=== PATIENT | female | born 1975 | race Asian ===

== ENCOUNTER 2016-05-19 06:09 | Observation (INO) | payer OTHER ==
[~2016-05-19] VITALS: Ht 157.5 cm; Wt 48.4 kg
--- NOTE | 2016-05-19 07:21 | DIAGNOSTIC IMAGING REPORT ---
PROCEDURE: XR CHEST 1 VIEW INDICATION: CHEST PAIN TECHNIQUE: Single view chest. 06:40 hours COMPARISON: None FINDINGS: Normal cardiomediastinal contour. Mildly prominent central pulmonary arteries. Hazy opacity in the left lower lung field along the diaphragm with blunting of the left costophrenic angle. The right lung is clear. No pneumothorax. Osseous structures are intact. IMPRESSION: 1. Hazy left lung base opacity in the left. Pneumonia and effusion may be present. Other consolidations such as atelectasis, infarct, or isolated effusion could also be present in the correct clinical setting. 2. Discussed with Dr. Nugent.
--- NOTE | 2016-05-19 08:24 | DIAGNOSTIC IMAGING REPORT ---
PROCEDURE: CTA THORAX WITH CONTRAST INDICATION: Left anterior chest pain, initial encounter TECHNIQUE: 80 ml of Isovue 370 was injected intravenously and axial images were obtained of the entire thorax with 3D sagittal and coronal MIP reconstructions. COMPARISON: Chest x-ray 05/19/2016 FINDINGS: There are pulmonary emboli to the branches of both lower lobes. There is a small peripheral left lower lobe infiltrate and small left pleural effusion. There is no adenopathy. Normal thoracic aorta without dissection or aneurysm. Heart size is normal. Visualized upper abdomen is unremarkable. No suspicious osseous lesions. IMPRESSION: 1. Pulmonary emboli to both lower lobes with small left lower lobe infiltrate and small left pleural effusion 2. Results discussed with Dr. Nugent
--- NOTE | 2016-05-19 09:16 | ED CLINICAL REPORT ---
Clinical Report - Physicians/Mid Levels [facility]ly [facility] [address] [place] [address] 05/19/2016 6:11 Patient: MICHAEL ROBLERO Time Seen: 06:19. Arrived- By private vehicle. Historian- patient. HISTORY OF PRESENT ILLNESS Chief Complaint: CHEST PAIN. At its maximum, severity described as 5 / 10. When seen in the E.D., severity described as 3 / 10. Modifying factors- worsened by deep breaths. It is described as dull, sharp and "pain" and it is described as located in the left chest area and radiating to the neck and upper back. This started about 3 days ago and is still present. It was gradual in onset and has been constant and waxing/waning. Onset during light activity. No nausea, vomiting or diaphoresis. She has had moderate difficulty breathing on exertion. REVIEW OF SYSTEMS No chills, fever, sweats, calf pain or cough. No pedal edema, palpitations, abdominal pain, black stools or bloody stools. No constipation, diarrhea, nausea or vomiting. All systems otherwise negative, except as recorded above. PAST HISTORY PCP - [facility]. Problems: no known problems. Additional Surgeries: no known surgeries. Medications: Control Pills. Allergies: No Known Drug Allergy. SOCIAL HISTORY Never smoker. No alcohol use or drug use. FAMILY HISTORY Denies family medical history. ADDITIONAL NOTES The nursing notes have been reviewed. PHYSICAL EXAM Vital Signs: 05/19/2016 06:13 BP: 120/82. HR: 81. RR: 15. O2 saturation: 100%. Pain level now: 5/10. Have been reviewed. Appearance: Alert. Eyes: Pupils equal, round and reactive to light. ENT: Pharynx normal. Neck: Normal inspection. Neck supple. CVS: Normal heart rate and rhythm. Heart sounds normal. Respiratory: (left basilar atelectatic crackles). Abdomen: Soft and nontender. Bowel sounds normal. No organomegaly. No mass. Back: Normal external inspection. Skin: Skin warm and dry. Normal skin color. Normal skin turgor. Extremities: Extremities exhibit normal ROM. No calf tenderness. No lower extremity edema. LABS, X-RAYS, AND EKG EKG: Normal EKG. Prior EKG unavailable. The study has been independently viewed by me. Chest X-ray: (MPRESSION: 1. Hazy left lung base opacity in the left. Pneumonia and effusion may be present. Other consolidations such as atelectasis, infarct, or isolated effusion could also be present in the correct clinical setting.). The X-rays were interpreted contemporaneously by me and discussed with the radiologist. Chest CT: (IMPRESSION: 1. Pulmonary emboli to both lower lobes with small left lower lobe infiltrate and small left pleural effusion). The study was interpreted contemporaneously by me and discussed with the radiologist. Laboratory Tests: CBC w Diff: (BANDAR: 05/19/2016 06:25) ( Mscvd 05/19/2016 07:40) Final results Test Result Flag Units (Reference) WHITE BLOOD COUNT 6.7 K/uL (4.5-11.5) RED BLOOD COUNT 5.70 H M/uL (4.00-5.20) HEMOGLOBIN 11.6 L gm/dL (12.0-16.0) HEMATOCRIT 37.1 % (36.0-46.0) MEAN CELL VOLUME 65 L fL (80-100) MEAN CORPUSCULAR HGB 20 L pg (26-34) MEAN CORPUSCULAR HGB CONC 31 g/dL (31-37) RED CELL DISTRIBUTION WIDTH 14.2 % (11.6-14.8) PLATELET COUNT 213 K/uL (150-400) NEUTROPHIL % 61.1 % (50-75) LYMPH % 30.4 % (25-40) MONO % 5.7 % (3-14) EOSINOPHIL % 2.4 % (0-4) BASOPHIL % 0.4 % (0-2) RBC MORPHOLOGY 2+ OVALOCYTES~~1+ ANISOCYTOSIS~~2+ MICROCYTOSIS~~2+ HYPOCHROMIA~~GIANT PLATELETS SEEN PT with INR: (BANDAR: 05/19/2016 06:25) ( MsgRcvd 05/19/2016 07:40) Final results Test Result Flag Units (Reference) INR 1.0 (0.8-1.2) Low Intensity Therapy: INR 1.5-2.0 PT range 18.5-23.1Mod.Intensity Therapy: INR 2.0-3.0 PT range 23.1-31.5High Intensity Therapy: INR 2.5-3.5 PT range 27.4-35.5High Intensity Therapy 2: INR 3.0-4.0 PT range 31.5-39.3 APTT 28 SECONDS (24-34) [id number]: (BANDAR: 05/19/2016 06:25) ( MsgRcvd 05/19/2016 06:59) Final results Test Result Flag Units (Reference) D-DIMER QUANTITATIVE 1.72 H ug/mLFEU (0.27-0.52) The primary value of this quantitative assay relates toits negative predictive value (i.e. exclusion) of pulmonaryembolism/deep vein thrombosis/DIC.Elevated levels of d-dimer may also occur with:, age, cancer, inflammation, liver disease,post-op, infection, hematoma, coronary disease, peripheralarteriopathy, bleeding disorders and thrombolytic treatment.Results should be correlated with other clinical andradiological data.Testing Methodology: Latex Immunoassay CMP: (BANDAR: 05/19/2016 06:25) ( MsgRcvd 05/19/2016 07:32) Final results Test Result Flag Units (Reference) GLUCOSE 94 mg/dL (70-110) BUN 10 mg/dL (7-18) CREATININE 1.0 mg/dL (0.6-1.3) Estimated GFR >60 mL/min Estimated GFR- >60 mL/min Note: Persistent reduction over 3 months in eGFR<60 mL/min/1.73 m2 defines CKD. Patients with eGFR values>=60 mL/min/1.73 m2 may also have CKD if evidence ofpersistent proteinuria. Additional information may be foundat [email or web address].org. SODIUM 139 mmol/L (136-145) POTASSIUM 3.4 L mmol/L (3.5-5.1) CHLORIDE 103 mmol/L (98-107) CARBON DIOXIDE 26 mmol/L (21-32) CALCIUM 8.7 mg/dL (8.5-10.1) TOTAL PROTEIN 7.7 g/dL (6.4-8.2) ALBUMIN 3.1 L g/dL (3.3-5.0) BILIRUBIN, TOTAL 0.4 mg/dL (0.0-1.0) ALKALINE PHOSPHATASE 70 U/L (46-116) AST (SGOT) 18 U/L (15-37) ALT (SGPT) 25 U/L (12-78) LIPASE 179 U/L (73-393) AMYLASE 84 U/L (25-115) TROPONIN I <0.05 L ng/mL (0.00-1.5) TROPONIN REFERENCE RANGE:<0.1 NEGATIVE0.1-1.5 INDETERMINANT>1.5 POSITIVE . PROGRESS AND PROCEDURES Course of Care: I had an extended discussion with the patient and her spouse about her contraception. I suggested that she stop the use of the NuvaRing and consider a different form of contraception. We discussed the possible use of a ParaGard IUD or progestin only hormonal therapy. She will stop the use of the NuvaRing and will consider her other options. Patient is stable. Discussed case with hospitalist, (Bindu). Reviewed test results and need for additional work-up. Agreed upon treatment plan, need for patient follow-up and decision to place in observation. Health care provider will see patient in hospital. Patient/family counseled. Old medical records ordered. Old records unavailable. Disposition orders written (in [facility]). Disposition: Admitted. Observation. CLINICAL IMPRESSION Acute pulmonary embolism. (Electronically signed by Garrett Nugent MD 05/20/2016 7:28)
[2016-05-19 10:30] VITALS: BP 116/72
--- NOTE | 2016-05-19 10:30 | NUR ---
PT ADMITTED TO ROOM 210A VIA THE ED. SHE IS ALERT, ORIENTED, INDEPENDANT AND APPEARS CALM. HER IS WITH HER AND DR BOWLIGN WILL BE IN TO SEE HER. CURRENTLY SHE IS RESTING, CALL LIGHT WITHIN REACH. WILL CONTINUE TO MONITOR.
--- NOTE | 2016-05-19 13:16 | ED ORDER SUMMARY ---
..... Patient: MICHAEL ROBLERO OrderSheet [facility] VisitID: [id number] [address] [place] [address] 41y, F Registration Date/Time: 05/19/2016 ORDER SHEET Weight: 52.1 kg (stated) Allergies: No Known Drug Allergy GENERAL ORDERS: CBC w Diff Urgent (06:25 05/19/2016 Sam Addison verbal order read back to Blank MENDEZ) (6:37 CHagish ER Mop Worker) CMP Urgent (06:05/19/2016 Sam Addison verbal order read back to Blank MENDEZ) (6:37 CHagish ER Mop Worker) Troponin-I Urgent (06:05/19/2016 Sam Addison verbal order read back to Blank MENDEZ) (6:37 CHagish ER Mop Worker) D-Dimer Urgent (06:05/19/2016 Sam Addison verbal order read back to Blank MENDEZ) (6:37 CHagish ER Mop Worker) Amylase Urgent (06:05/19/2016 Sam Addison verbal order read back to Blank MENDEZ) (6:37 CHagish ER Mop Worker) Lipase Urgent (06:05/19/2016 Sam Addison verbal order read back to Blank MENDEZ) (6:37 CHagish ER Mop Worker) Chest 1V Urgent (06:05/19/2016 Sam Addison verbal order read back to Blank MENDEZ) (6:36 CHagish ER Mop Worker) Substation Operator Helper (Continuous) (06:05/19/2016 Sam Addison verbal order read back to Blank MENDEZ) (6:36 CHagerty ER Mop Worker) EKG - ER Stat (06:05/19/2016 Sam Addison verbal order read back to Blank MENDEZ) (6[facility] CTA Thorax w Cont (No) (N/A) Urgent (07:26 05/19/2016 Blank MENDEZ) (7:26 Blank MENDEZ) (Cancelled: Other7:27 Blank MENDEZ) PT with INR Urgent (07:26 05/19/2016 Blank MENDEZ) (Ack 8:06 LNations ER Tech1) (9:27 LWhalen R.N.) PTT Urgent (07:05/19/2016 Blank MENDEZ) (Ack 8:07 LNations ER Tech1) (9:27 LWhalen R.N.) CTA Thorax w Cont (No) (N/A) Urgent (07:05/19/2016 Blank MENDEZ) (7:52 LWhalen R.N.) POC - Urine hCG (07:05/19/2016 Blank MENDEZ) (7:48 LWhalen R.N.) - (Protein C deficiency, Protein S deficiency, Antithrombin III deficiency, Prothrombin Gene mutation studies please) (08:47 05/19/2016 Blank MENDEZ) (Ack 9:02 LNations ER Tech1) MEDICATION ORDERS: Lovenox Subcut 1 mg/kg (HIGH ALERT MEDICATION, NOW) (09:04 05/19/2016 Blank MENDEZ) (9:27 LWhalen R.N.) IV FLUIDS: IV Saline Lock (06:25 05/19/2016 Sam Addison verbal order read back to Blank MENDEZ) (6:38 Manda QuintanaNMauro) IV NS : initial bolus 500 mL (1000 mL/hr), then 125 mL/hr for 4h (NOW); Urgent (07:05/19/2016 Blank MENDEZ) (7:51 LWhalricardo R.N.) ORDER SHEET NOTES: [Electronically signed by Reynold Sheldon R.N. (19:19 05/19/2016)] [Electronically signed by Garrett Nugent MD (07:28 05/20/2016)] [Electronically locked/signed by Reynold Sheldon R.N. (19:05/19/2016)]
--- NOTE | 2016-05-19 13:16 | ED NURSING NOTES ---
Clinical Report - Nurses [facility] [address] [place] [address] 05/19/2016 6:11 Patient: MICHAEL ROBLERO TRIAGE Triage time 06:13. Acuity: LEVEL 2. Chief Complaint: CHEST PAIN. 06:20. Alert. SEPSIS SCREEN: Sepsis Screen. Negative (no infection suspected/documented). --06:20 Brendan Rendon R.N. 06:13 05/19/16. BP: 120/82 taken on the left arm. HR: 81. RR: 15. O2 saturation: 100% on room air. Pain level now: 08/06. --06:20 Brendan Rendon R.N. Weight: 52.1 kg stated. Height/Length: 62 inches Per Patient. BMI: 21. --06:15 Brendan Rendon R.N. Medications Control Pills. --06:14 Brendan Rendon R.N. Medication/allergy information source: the patient. --06:20 Brendan Rendon R.N. Allergies No Known Drug Allergy. --06:14 Brendan Rendon R.N. History Arrived by private vehicle. Historian: patient. Onset. (thursday). ( Patient reports left sided chest pain and left upper back pain that started Thursday, which gets worse with deep breathing or coughing). 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 PAST MEDICAL HX: Immunizations: up-to-date. Last normal menstrual period- 2- 3 months ago. SOCIAL HX: Never smoker. No alcohol use or drug use. No infectious disease exposure. ABUSE ASSESSMENT: No report of abuse. FALL RISK ASSESSMENT: Fall risk assessment completed. No fall risk identified. NUTRITIONAL RISK ASSESSMENT: The nutritional risk assessment revealed no deficiencies. FUNCTIONAL ASSESSMENT: Functional assessment: no impairments noted. LEARNING NEEDS ASSESSMENT: The learning needs assessment revealed no barriers. SKIN INTEGRITY ASSESSMENT: Skin integrity risk assessment completed. No skin integrity risk identified. --06:20 Brendan Rendon R.N. PROBLEMS: no known problems. ADDITIONAL SURGERIES: no known surgeries. Interventions ID band on patient. To treatment room. --06:20 Brendan Rendon R.N. PHYSICAL ASSESSMENT 06:21. Ambulatory to room. Patient gowned. GENERAL / NEURO / PSYCH: Alert. Oriented X 4. HEENT: Mucous membranes are pink. RESPIRATORY: Respirations not labored. CVS: Cardiac rhythm: normal sinus rhythm. SKIN: Skin is warm and dry. Normal skin turgor. --06:21 Brendan Rendon R.N. NURSING PROGRESS NOTES 06:19. clinical research monitor, pulse oximeter and NIBP monitor placed on patient; monitor alarms on. --06:23 Brendan Rendon R.N. 06:20. EKG time: (20). EKG was performed by a nurse and shown to the ED physician. Head of bed elevated. Patient is not calm. Two patient identifiers checked. Call light placed in reach. Bed placed in lowest position. Brakes of bed on. Patient ready for evaluation- chart flagged. --06:22 Brendan Rendon R.N. 06:34 05/19/2016 Site #1 started via IV in the right antecubital space with an 20g angiocath, with aseptic technique and good blood return; one attempt. Blood drawn: rainbow set. Labeled in the presence of the patient and sent to the lab. Saline lock flushed with 10 mL saline. --06:38 Brendan Rendon R.N. 06:36. Portable chest x-ray performed. --06:38 Brendan Rendon R.N. Critical value relayed to ED by JIM Rios. Critical value received by Dr. Nugent. D-Dimer 1.72. Critical value read back. Verified lab result. ED physician notifed of critical value. No action is required. --07:06 Gabriel Morales R.N. 07:08. Care transferred and report given (Reynold EDRKelvin). --07:09 Brendan Rendon R.N. ( Report received introduced self to patient and no needs currently.). --07:12 Reynold Sheldon R.N. 07:51 05/19/2016 Started bag #1 1000 mL IV Fluids IV NS (Saline); at 1000 mL/hr over 1 hour(s) via site #1 via dial-a-flow. Allergies verified and confirmed 5 rights. IV patency established. IV site checked: no pain, redness, or swelling. IV flushed thoroughly pre- and post-medication administration. --07:52 Reynold Sheldon R.N. Patient ID band checked. Instructions provided to collect clean catch urine and patient verbalized understanding. Clean catch urine collected with return of yellow-colored urine; sample sent to lab for urinalysis. Specimen labeled in the presence of the patient. ( POC negative.). --07:53 Reynold Sheldon R.N. 08:00 05/19/16. BP: 101/73. HR: 66. RR: 19. O2 saturation: 100%. 07:10 05/19/16. BP: 101/64. HR: 67. RR: 19. O2 saturation: 99% on room air. Pain level now: 06/06. --08:22 Reynold Sheldon R.N. ( H/P forms given to family.). --09:22 Tamiko Aiken ER Kimeltu 09:27 05/19/2016 Lovenox (Enoxaparin Sodium) Subcutaneous 50 mg given. Given in the right abdomen. Allergies verified and confirmed 5 rights. --09:27 Reynold Sheldon R.N. 09:32 05/19/2016 IV Saline Lock Drip IV Continued: at the rate of 125 mL/hr bag #2. IV patency established. IV site checked: no pain, redness, or swelling. IV flushed thoroughly. --09:33 Reynold Sheldon R.N. ( overview faxed to 2nd floor). --09:36 Tamiko Aiken [employer] TechComprimato 09:50 05/19/16. BP: 99/69. HR: 71. RR: 23. O2 saturation: 98% on room air. 09:00 05/19/16. BP: 111/74. HR: 72. RR: 20. O2 saturation: 99%. 08:15 05/19/16. BP: 101/73. HR: 68. RR: 20. O2 saturation: 100%. --10:10 Reynold Sheldon R.N. DISPOSITION / DISCHARGE Departure time: 10:10 May 19 2016. Admitted to Acute Care. ( Report given to Melida FERNANDEZ. Transport here to take pt.). --10:10 Reynold Sheldon R.N. 09:50 05/19/16. BP: 99/69. HR: 71. RR: 23. O2 saturation: 98% on room air. --10:10 Reynold Sheldon R.N. Locked/Released at 05/19/2016 19:19 by Reynold Sheldon R.N.
--- NOTE | 2016-05-19 13:16 | ED NURSING NOTES ---
Clinical Report - Nurses [facility] [address] [place] [address] 05/19/2016 6:11 Patient: MICHAEL ROBLERO TRIAGE Triage time 06:13. Acuity: LEVEL 2. Chief Complaint: CHEST PAIN. 06:20. Alert. SEPSIS SCREEN: Sepsis Screen. Negative (no infection suspected/documented). --06:20 Brendan Rendon R.N. 06:13 05/19/16. BP: 120/82 taken on the left arm. HR: 81. RR: 15. O2 saturation: 100% on room air. Pain level now: 08/06. --06:20 Brendan Rendon R.N. Weight: 52.1 kg stated. Height/Length: 62 inches Per Patient. BMI: 21. --06:15 Brendan Rendon R.N. Medications Control Pills. --06:14 Brendan Rendon R.N. Medication/allergy information source: the patient. --06:20 Brendan Rendon R.N. Allergies No Known Drug Allergy. --06:14 Brendan Rendon R.N. History Arrived by private vehicle. Historian: patient. Onset. (thursday). ( Patient reports left sided chest pain and left upper back pain that started Thursday, which gets worse with deep breathing or coughing). 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 PAST MEDICAL HX: Immunizations: up-to-date. Last normal menstrual period- 2- 3 months ago. SOCIAL HX: Never smoker. No alcohol use or drug use. No infectious disease exposure. ABUSE ASSESSMENT: No report of abuse. FALL RISK ASSESSMENT: Fall risk assessment completed. No fall risk identified. NUTRITIONAL RISK ASSESSMENT: The nutritional risk assessment revealed no deficiencies. FUNCTIONAL ASSESSMENT: Functional assessment: no impairments noted. LEARNING NEEDS ASSESSMENT: The learning needs assessment revealed no barriers. SKIN INTEGRITY ASSESSMENT: Skin integrity risk assessment completed. No skin integrity risk identified. --06:20 Brendan Rendon R.N. PROBLEMS: no known problems. ADDITIONAL SURGERIES: no known surgeries. Interventions ID band on patient. To treatment room. --06:20 Brendan Rendon R.N. PHYSICAL ASSESSMENT 06:21. Ambulatory to room. Patient gowned. GENERAL / NEURO / PSYCH: Alert. Oriented X 4. HEENT: Mucous membranes are pink. RESPIRATORY: Respirations not labored. CVS: Cardiac rhythm: normal sinus rhythm. SKIN: Skin is warm and dry. Normal skin turgor. --06:21 Brendan Rendon R.N. NURSING PROGRESS NOTES 06:19. panel monitor, pulse oximeter and NIBP monitor placed on patient; monitor alarms on. --06:23 Brendan Rendon R.N. 06:20. EKG time: (20). EKG was performed by a nurse and shown to the ED physician. Head of bed elevated. Patient is not calm. Two patient identifiers checked. Call light placed in reach. Bed placed in lowest position. Brakes of bed on. Patient ready for evaluation- chart flagged. --06:22 Brendan Rendon R.N. 06:34 05/19/2016 Site #1 started via IV in the right antecubital space with an 20g angiocath, with aseptic technique and good blood return; one attempt. Blood drawn: rainbow set. Labeled in the presence of the patient and sent to the lab. Saline lock flushed with 10 mL saline. --06:38 Brendan Rendon R.N. 06:36. Portable chest x-ray performed. --06:38 Brendan Rendon R.N. Critical value relayed to ED by JIM Rios. Critical value received by Dr. Nugent. D-Dimer 1.72. Critical value read back. Verified lab result. ED physician notifed of critical value. No action is required. --07:06 Gabriel Morales R.N. 07:08. Care transferred and report given (Reynold EDRKelvin). --07:09 Brendan Rendon R.N. ( Report received introduced self to patient and no needs currently.). --07:12 Reynold Sheldon R.N. 07:51 05/19/2016 Started bag #1 1000 mL IV Fluids IV NS (Saline); at 1000 mL/hr over 1 hour(s) via site #1 via dial-a-flow. Allergies verified and confirmed 5 rights. IV patency established. IV site checked: no pain, redness, or swelling. IV flushed thoroughly pre- and post-medication administration. --07:52 Reynold Sheldon R.N. Patient ID band checked. Instructions provided to collect clean catch urine and patient verbalized understanding. Clean catch urine collected with return of yellow-colored urine; sample sent to lab for urinalysis. Specimen labeled in the presence of the patient. ( POC negative.). --07:53 Reynold Sheldon R.N. 08:00 05/19/16. BP: 101/73. HR: 66. RR: 19. O2 saturation: 100%. 07:10 05/19/16. BP: 101/64. HR: 67. RR: 19. O2 saturation: 99% on room air. Pain level now: 06/06. --08:22 Reynold Sheldon R.N. ( H/P forms given to family.). --09:22 Tamiko Aiken ER Amlogic 09:27 05/19/2016 Lovenox (Enoxaparin Sodium) Subcutaneous 50 mg given. Given in the right abdomen. Allergies verified and confirmed 5 rights. --09:27 Reynold Sheldon R.N. 09:32 05/19/2016 IV Saline Lock Drip IV Continued: at the rate of 125 mL/hr bag #2. IV patency established. IV site checked: no pain, redness, or swelling. IV flushed thoroughly. --09:33 Reynold Sheldon R.N. ( overview faxed to 2nd floor). --09:36 Tamiko Aiken GadgetATM TechInviteDEV 09:50 05/19/16. BP: 99/69. HR: 71. RR: 23. O2 saturation: 98% on room air. 09:00 05/19/16. BP: 111/74. HR: 72. RR: 20. O2 saturation: 99%. 08:15 05/19/16. BP: 101/73. HR: 68. RR: 20. O2 saturation: 100%. --10:10 Reynold Sheldon R.N. DISPOSITION / DISCHARGE Departure time: 10:10 May 19 2016. Admitted to Acute Care. ( Report given to Melida FERNANDEZ. Transport here to take pt.). --10:10 Reynold Sheldon R.N. 09:50 05/19/16. BP: 99/69. HR: 71. RR: 23. O2 saturation: 98% on room air. --10:10 Reynold Sheldon R.N. Locked/Released at 05/19/2016 19:19 by Reynold Sheldon R.N.
--- NOTE | 2016-05-19 13:16 | ED ORDER SUMMARY ---
..... Patient: MICHAEL ROBLERO OrderSheet [facility] VisitID: [id number] [address] [place] [address] 41y, F Registration Date/Time: 05/19/2016 ORDER SHEET Weight: 52.1 kg (stated) Allergies: No Known Drug Allergy GENERAL ORDERS: CBC w Diff Urgent (06:25 05/19/2016 Sam Addison verbal order read back to Blank MENDEZ) (6:37 CHagish ER [employer]) CMP Urgent (06:05/19/2016 Sam Addison verbal order read back to Blank MENDEZ) (6:37 CHagish ER [place] [employer]) Troponin-I Urgent (06:05/19/2016 Sam Addison verbal order read back to Blank MENDEZ) (6:37 CHagish ER [place] [employer]) D-Dimer Urgent (06:05/19/2016 Sam Addison verbal order read back to Blank MENDEZ) (6:37 CHagish ER [place] [employer]) Amylase Urgent (06:05/19/2016 Sam Addison verbal order read back to Blank MENDEZ) (6:37 CHagish ER [place] [employer]) Lipase Urgent (06:05/19/2016 Sam Addison verbal order read back to Blank MENDEZ) (6:37 CHagish ER [place] [employer]) Chest 1V Urgent (06:05/19/2016 Sam Addison verbal order read back to Blank MENDEZ) (6:36 CHagish ER [place] [employer]) Software Quality Specialist (Continuous) (06:05/19/2016 Sam Addison verbal order read back to Blank MENDEZ) (6:36 CHagerty ER [place] [employer]) EKG - ER Stat (06:05/19/2016 Sam Addison verbal order read back to Blank MENDEZ) (6:36 [facility] [place] [employer]) CTA Thorax w Cont (No) (N/A) Urgent (07:26 05/19/2016 Blank MENDEZ) (7:26 Blank MENDEZ) (Cancelled: Other7:27 Blank MENDEZ) PT with INR Urgent (07:26 05/19/2016 Blank MENDEZ) (Ack 8:06 LNations ER Tech1) (9:27 LWhalen R.N.) PTT Urgent (07:05/19/2016 Blank MENDEZ) (Ack 8:07 LNations ER Tech1) (9:27 LWhalen R.N.) CTA Thorax w Cont (No) (N/A) Urgent (07:05/19/2016 Blank MENDEZ) (7:52 LWhalen R.N.) POC - Urine hCG (07:05/19/2016 Blank MENDEZ) (7:48 LWhalen R.N.) - (Protein C deficiency, Protein S deficiency, Antithrombin III deficiency, Prothrombin Gene mutation studies please) (08:47 05/19/2016 Blank MENDEZ) (Ack 9:02 LNations ER Tech1) MEDICATION ORDERS: Lovenox Subcut 1 mg/kg (HIGH ALERT MEDICATION, NOW) (09:04 05/19/2016 Blank MENDEZ) (9:27 LWhalen R.N.) IV FLUIDS: IV Saline Lock (06:25 05/19/2016 Sam Addison verbal order read back to Blank MENDEZ) (6:38 Manda QuintanaNMauro) IV NS : initial bolus 500 mL (1000 mL/hr), then 125 mL/hr for 4h (NOW); Urgent (07:05/19/2016 Blank MENDEZ) (7:51 LWhalricardo R.N.) ORDER SHEET NOTES: [Electronically signed by Reynold Sheldon R.N. (19:19 05/19/2016)] [Electronically signed by Garrett Nugent MD (07:28 05/20/2016)] [Electronically locked/signed by Reynold Sheldon R.N. (19:05/19/2016)]
[2016-05-19 14:20] VITALS: BP 112/77
--- NOTE | 2016-05-19 15:22 | Progress Note ---
Subjective General Admission History and Physical Examination-24 hour observation note Patient Name: Edvin Chavez Admission and Discharge Date: May 19, 2016 Primary Care Provider: Yamila Dietz M.D. Attending Physician: Scar Ruano M.D. Admitting Physician: Scar Ruano M.D. SUBJECTIVE Historian: Patient and family Reliability: Good Chief Complaint: Chest pain, shortness of breath History of Present Illness: The patient is a 41-year-old female with no significant past medical history who presented to [facility] emergency department on the day of admission secondary to complaints of shortness of breath and chest pain. [facility] ER evaluation was consistent with acute pulmonary embolism. Secondary to the above, the patient was admitted by Scar Ruano M.D. for further evaluation and treatment. PAST MEDICAL HISTORY Illnesses: 1. None Allergies: 1. None Medications: 1. Nuvaring monthly 2. Multivitamin one by mouth daily 3. Probiotic 1 by mouth twice a week Surgery: 1. 2005 2. 2002 Injuries: 1. No significant Hospitalizations: 1. Childbirth FAMILY HISTORY Parents: 1. Father, , 67, Alzheimer's dementia, accidental , 2. Mother, , 58, lymphoma Siblings: 1. The patient has 5 siblings all of which are in good health Children: 1. The patient has 2 children one male, 1 female. Both children were in good health Other significant family history: None SOCIAL HISTORY 1. Marital Status: 2. Religious: None 3. Education: High school and 2 years of college 4. Employment History: [employer], 10 years 5. Occupational health exposures: Loud noises HABITS 1. Tobacco: None 2. Drugs: None 3. Alcohol: None 4. Caffeine: None HEALTH SUPERVISION Item/Test 1. Vision screen: 2014 2. Cholesterol Profile: 2015 3. PSA: Not applicable 4. JOSHUA: Not applicable 5. FOBT: Not applicable 6. Blood Glucose: 2016 7. Colonoscopy: Not applicable 8. History and physical exam: 2015 9. Audiogram: 2015 10. Mammogram: 2015 01. Pap/pelvic exam: 2012 IMMUNIZATIONS: 1. Pneumococcal: No previous 2. Influenza: 2015 3. Tetanus: Unknown ADVANCED DIRECTIVES: 1. The patient has no advanced directives other than donor card. The patient wishes to be placed on a FULL CODE STATUS during her hospitalization. REVIEW OF SYSTEMS Remarkable for those things stated in the history of present illness and past medical history. Seventeen point review of system completed with the following notable findings: General: Chest pain Skin: Dryness Eyes: Decreased visual acuity requiring corrective lenses Ears: Hearing loss Cardiovascular: Chest pain, shortness of breath with exertion Complete review of other systems unremarkable. Physical Exam Vital Signs / I&Os Vital Signs Date Time Temp Pulse Resp B/P Pulse O2 O2 Flow FiO2 Ox Delivery Rate 05/19 1420 98.4 78 18 112/77 100 Room Air 05/19 1030 98.1 72 20 116/72 94 Nasal 0.0 Cannula LAB Results Laboratory Tests 05/19 05/19 0930 0625 Coagulation D-Dimer, Quantitative (0.27 - 0.52 ug/mLFEU) 1.72 Protein C Antigen Pending Total Protein S Ag Pending Free Protein S Antigen Pending Antithrombin III Ag Pending Miscellaneous Factor II DNA Analysis Pending Factor II DNA Comment Pending 05/19 0625 Chemistry Plasma Sodium (136 - 145 mmol/L) 139 Plasma Potassium (3.5 - 5.1 mmol/L) 3.4 Plasma Chloride (98 - 107 mmol/L) 103 CO2 (Enzymatic) (21 - 32 mmol/L) 26 BUN (7 - 18 mg/dL) 10 Creatinine (0.6 - 1.3 mg/dL) 1.0 Est GFR ( Amer) (mL/min) >60 Est GFR (Non-Af Amer) (mL/min) >60 Glucose (70 - 110 mg/dL) 94 Plasma Calcium (8.5 - 10.1 mg/dL) 8.7 Total Bilirubin (0.0 - 1.0 mg/dL) 0.4 AST (15 - 37 U/L) 18 ALT (12 - 78 U/L) 25 Alkaline Phosphatase (46 - 116 U/L) 70 Troponin (0.00 - 1.5 ng/mL) <0.05 Total Protein (6.4 - 8.2 g/dL) 7.7 Albumin (3.3 - 5.0 g/dL) 3.1 Amylase (25 - 115 U/L) 84 Lipase (73 - 393 U/L) 179 Coagulation INR (0.8 - 1.2) 1.0 APTT (24 - 34 SECONDS) 28 Hematology WBC (4.5 - 11.5 K/uL) 6.7 RBC (4.00 - 5.20 M/uL) 5.70 Hgb (12.0 - 16.0 gm/dL) 11.6 Hct (36.0 - 46.0 %) 37.1 MCV (80 - 100 fL) 65 MCH (26 - 34 pg) 20 RDW (11.6 - 14.8 %) 14.2 Neut % (Auto) (50 - 75 %) 61.1 Lymph % (Auto) (25 - 40 %) 30.4 Roberts % (Auto) (3 - 14 %) 5.7 Eos % (Auto) (0 - 4 %) 2.4 Baso % (Auto) (0 - 2 %) 0.4 Plt Count, EDTA (150 - 400 K/uL) 213 RBC Morphology (4324 A) GIANT PLATELETS SEEN PUBS MCHC (31 - 37 g/dL) [address] Thorax IMPRESSION: 1. Pulmonary emboli to both lower lobes with small left lower lobe infiltrate and small left pleural effusion 2. Results discussed with Dr. Nugent Dictated by: CORAL PEÑALOZA MD D: MARYBETH;05/19/16 0823 Assessment and Plan Problem List 1. Pulmonary embolism Plan -Patient presents with findings of bilateral pulmonary emboli -Patient hemodynamically stable -Lovenox 1 mg/kg subcutaneous, transition to xarelto 15 mg by mouth twice a day at discharge -The patient discharged home with outpatient follow-up with PCP Current status: Fair, stable Anticipated discharge date: Today, patient discharged home Anticipated discharge placement: Home Patient care time: Time spent in chart review, patient interview, physical exam, CPOE, and care documentation: 70 minutes Visit to patient today: 2 Complexity of care: Moderate-High E&M Codes Admit & Discharge: Comp/Moderate/99416
--- NOTE | 2016-05-19 16:55 | Provider's Discharge Care Plan ---
Problem, Goal, Plan Problem List 1. Pulmonary embolism Goals: Improve disease control, Prevent disease progress Instructions: Follow up as directed, Take meds as directed, light activity until seen by
[2016-05-19] MEDS ORDERED: XARELTO10 MG PO (16:58)
[2016-05-19] MEDS ORDERED: OXYCODONE/ACETA1 TA1 PO (16:58)
[2016-05-19] MEDS ORDERED: XARELTO15 MG PO (17:00)
--- NOTE | 2016-05-19 18:48 | NUR ---
PT DISCHARGED HOME WITH FAMILY. IV REMOVED, DISCHARGE INSTRUCTIONS GIVEN AND ALL QUESTIONS ANSWERED.
--- NOTE | 2016-05-20 07:29 | ED DISCHARGE INSTRUCTIONS ---
Patient: MICHAEL ROBLERO General Instructions [facility] VisitID: [id number] [address] [place] [address] 41y, F Registration Date/Time: 05/19/2016 Acute pulmonary embolism. (Electronically signed by Garrett Nugent MD 05/20/2016 7:28)
--- NOTE | 2016-05-20 07:29 | ED MAR SUMMARY ---
..... Medication Administration Record [facility] [address] [place] [place] [address] Patient: MICHAEL ROBLERO Visit ID: [id number] 41y, F Weight: 52.1 kg Height/Length: 62 in BMI: 21 ALLERGIES: No Known Drug Allergy Start 07:51 05/19/2016 Reynold Shedlon R.N. Medication Administered: IV NS (SALINE), Dose: IV Fluids over 1 hour(s), Rate: 1000 mL/hr, Dispensed: 1000 mL bag, Site: #1 right AC. Medication Ordered: IV NS : initial bolus 500 mL (1000 mL/hr), then 125 mL/hr for 4h (NOW); Urgent. Given 09:27 05/19/2016 Reynold Sheldon R.N. Medication Administered: LOVENOX [SUBCUTANEOUS] (ENOXAPARIN SODIUM), Dose: 50 mg Subcutaneous. Medication Ordered: Lovenox Subcut 1 mg/kg (HIGH ALERT MEDICATION, NOW).
--- NOTE | 2016-05-20 07:29 | ED DISCHARGE INSTRUCTIONS ---
Patient: MICHAEL ROBLERO General Instructions [facility] VisitID: [id number] [address] [place] [address] 41y, F Registration Date/Time: 05/19/2016 Acute pulmonary embolism. (Electronically signed by Garrett Nugent MD 05/20/2016 7:28)
--- NOTE | 2016-05-20 07:29 | ED MED RECONCILIATION SUMMARY ---
Patient: MICHAEL ROBLERO Medication Reconciliation Report [facility] VisitID: [id number] [address] [place] [address] 41y, F Registration Date/Time: 05/19/2016 Weight: 52.1 kg Height/Length: 62 in. BMI: 21.0 ALLERGIES: No Known Drug Allergy The patient's Home Medications are listed below: THE FOLLOWING MEDICATIONS NEED TO BE RECONCILED: Control Pills The source(s) of the original Home Medication information: patient The following Medications were given to the patient in the Emergency Department: IV NS IV Fluids bolus 0, then 1000 mL/hr, administered: 05/19/2016 7:51:00 AM Lovenox [Subcutaneous] Subcutaneous 50 mg, administered: 05/19/2016 9:27:00 AM The following Medications were prescribed to the patient: None.
--- NOTE | 2016-05-20 07:29 | ED MED RECONCILIATION SUMMARY ---
Patient: MICHAEL ROBLERO Medication Reconciliation Report [facility] VisitID: [id number] [address] [place] [address] 41y, F Registration Date/Time: 05/19/2016 Weight: 52.1 kg Height/Length: 62 in. BMI: 21.0 ALLERGIES: No Known Drug Allergy The patient's Home Medications are listed below: THE FOLLOWING MEDICATIONS NEED TO BE RECONCILED: Control Pills The source(s) of the original Home Medication information: patient The following Medications were given to the patient in the Emergency Department: IV NS IV Fluids bolus 0, then 1000 mL/hr, administered: 05/19/2016 7:51:00 AM Lovenox [Subcutaneous] Subcutaneous 50 mg, administered: 05/19/2016 9:27:00 AM The following Medications were prescribed to the patient: None.
--- NOTE | 2016-05-20 07:29 | ED MAR SUMMARY ---
..... Medication Administration Record [facility] [address] [address] Patient: MICHAEL ROBLERO Visit ID: [id number] 41y, F Weight: 52.1 kg Height/Length: 62 in BMI: 21 ALLERGIES: No Known Drug Allergy Start 07:51 05/19/2016 Reynold Sheldon R.N. Medication Administered: IV NS (SALINE), Dose: IV Fluids over 1 hour(s), Rate: 1000 mL/hr, Dispensed: 1000 mL bag, Site: #1 right AC. Medication Ordered: IV NS : initial bolus 500 mL (1000 mL/hr), then 125 mL/hr for 4h (NOW); Urgent. Given 09:27 05/19/2016 Reynold Sheldon R.N. Medication Administered: LOVENOX [SUBCUTANEOUS] (ENOXAPARIN SODIUM), Dose: 50 mg Subcutaneous. Medication Ordered: Lovenox Subcut 1 mg/kg (HIGH ALERT MEDICATION, NOW).
== END 2016-05-19 18:46 | disposition home or self-care (01) ==
LOC: ED SRH 06:09 → ACUTE2 SRH 09:20 → TRANS SRH 09:20 → ACUTE2 SRH 10:50
PROVIDERS: ADMIT Emergency Medicine
DX: I26.99 Other pulmonary embolism without acute cor pulmonale (principal)
CPT/HCPCS: 29230; 90074; 90100; 90464; 90616; 91556; 92235; 92530; 94001; 94060; 95011; 95012; 95013; 95020; 95059